=== PATIENT | male | born 1990 | race Caucasian/White ===

== ENCOUNTER → 2020-02-23 | Outpatient (CLI) | payer OTHER ==
[~2020-02-23] VITALS: Ht 167.6 cm; Wt 106.5 kg
[~2020-02-23] MED LIST: CLINDAMYCIN 900 MG/D5% WATER 50 ML IV SCH; MULT-1367 PO
[2020-02-23 10:54] LABS: BASOPHILS % (AUTO) 0.3 % (0.0-5.0); EOSINOPHILS % (AUTO) 2.2 % (0.0-8.0); HEMATOCRIT 46.8 % (42-54); LYMPHOCYTES % (AUTO) 22.3 % (21.0-51.0); MEAN CORPUSCULAR HEMOGLOBIN 27.1 pg (27.0-33.0); MEAN CORPUSCULAR HGB CONC 33.5 g/dL (32.0-36.0); MEAN CORPUSCULAR VOLUME 80.8 fL (79-99); MONOCYTES % (AUTO) 6.6 % (3.0-13.0); NEUTROPHILS % (AUTO) 68.4 % (40.0-77.0); PLATELET COUNT (AUTO) 259 K/uL (130-400); RED BLOOD CELL COUNT(AUTO) 5.79 MIL/uL (4.50-6.20); RED CELL DISTRIBUTION WIDTH 12.7 % (11.0-15.5)
[2020-02-23 11:02] LABS: CREATININE 1.1 mg/dL (0.5-1.5); POTASSIUM 3.7 mmol/L (3.5-5.1)
[2020-02-27 12:21] VITALS: BP 134/78
== END | disposition home or self-care (01) ==
LOC: DAH 10:00 → EDSTATUS 03-01 08:50
PROVIDERS: ATTEND Orthopaedic Surgery
DX: Z01.818 Encounter for other preprocedural examination (principal); S83.242A Other tear of medial meniscus, current injury, left knee, initial encounter; S83.512A Sprain of anterior cruciate ligament of left knee, initial encounter; X58.XXXA Exposure to other specified factors, initial encounter; Z20.828 Contact with and (suspected) exposure to other viral communicable diseases; Y93.89 Activity, other specified; Y92.89 Other specified places as the place of occurrence of the external cause; Y99.8 Other external cause status
CPT/HCPCS: 36415; 80048; 85025; U0003; J3490

== ENCOUNTER 2020-06-09 06:04 | Day surgery (SDC) | payer OTHER ==
[2020-06-04 12:24] LABS: BASOPHILS % (AUTO) 0.6 % (0.0-5.0); EOSINOPHILS % (AUTO) 2.2 % (0.0-8.0); HEMATOCRIT 49.4 % (42-54); MEAN CORPUSCULAR HEMOGLOBIN 26.8 pg (27.0-33.0); MEAN CORPUSCULAR HGB CONC 32.2 g/dL (32.0-36.0); MEAN CORPUSCULAR VOLUME 83.3 fL (79-99); MONOCYTES % (AUTO) 8.8 % (3.0-13.0); NEUTROPHILS % (AUTO) 65.1 % (40.0-77.0); PLATELET COUNT (AUTO) 278 K/uL (130-400); RED BLOOD CELL COUNT(AUTO) 5.93 MIL/uL (4.50-6.20); RED CELL DISTRIBUTION WIDTH 12.7 % (11.0-15.5); WHITE BLOOD COUNT (AUTO) 7.9 K/uL (4.8-10.8)
[2020-06-04 12:42] LABS: CREATININE 1.1 mg/dL (0.5-1.5); POTASSIUM 4.4 mmol/L (3.5-5.1)
[2020-06-07 16:27] VITALS: BP 133/79
[~2020-06-09] VITALS: Ht 167.6 cm; Wt 106.4 kg
[2020-06-09] VITALS (18 sets, daily range): BP systolic 121–140; BP diastolic 68–82
[2020-06-09] MEDS: CLINDAMYCIN 900 MG/D5% WATER 50 ML IV SCH ×2 (06:00→08:22)
[2020-06-09] MEDS ORDERED: LACTATED RINGERS 1000ML 1,000 ML IV ONE (06:21)
[2020-06-09] MEDS ORDERED: PROPOFOL 10 MG/ML 20ML VIAL IV ONE (07:34)
[2020-06-09] MEDS ORDERED: LIDOCAINE PF 2% 5ML ABBOJECT ONE (07:34)
[2020-06-09] MEDS ORDERED: SUCCINYLCHOLINE CHLORIDE 20 MG/ML 10 ML VIAL ONE (07:34)
[2020-06-09] MEDS ORDERED: MIDAZOLAM HCL 1 MG/ML 2ML VIAL ONE (07:34)
[2020-06-09] MEDS ORDERED: ROCURONIUM 10MG/1ML SYR 10 MG/ML ML ONE (07:34)
[2020-06-09] MEDS ORDERED: FENTANYL CITRATE PF 50 MCG/1 ML 2ML VIAL ONE (07:35)
[2020-06-09] MEDS ORDERED: GLYCOPYRROLATE 1 MG/5 ML SYRINGE ONE (07:38)
[2020-06-09] MEDS ORDERED: DEXAMETHASONE SOD PHOSPHATE 4 MG/ML 1ML VIAL ONE (07:38)
[2020-06-09] MEDS ORDERED: ONDANSETRON HCL 4 MG/2 ML VIAL ONE (07:39)
[2020-06-09] MEDS ORDERED: NEOSTIGMINE 5MG/5ML SYR IV ONE (07:39)
[2020-06-09] MEDS ORDERED: ROPIVACAINE 0.5% 5MG/ML 30ML IJ ONE (07:43)
[2020-06-09] MEDS ORDERED: CLINDAMYCIN PHOSPHATE 150 MG/ML 6ML VIAL ONE (07:46)
[2020-06-09] MEDS ORDERED: MEPERIDINE-PF 25 MG/ML SYG ONE ×2 (10:29→10:39)
[2020-06-09] MEDS ORDERED: HYDR-4060 PO ×2 (10:35→15:45)
[2020-06-09] MEDS ORDERED: CLIN300C10 PO (10:35)
[2020-06-09] MEDS ORDERED: IBUP-2070 PO (10:35)
== END 2020-06-09 12:15 | disposition home or self-care (01) ==
LOC: DAH 06:04
PROVIDERS: ATTEND Orthopaedic Surgery
DX: S83.512A Sprain of anterior cruciate ligament of left knee, initial encounter (principal); Z20.822 Contact with and (suspected) exposure to COVID-19; M95.8 Other specified acquired deformities of musculoskeletal system; G89.29 Other chronic pain; M25.562 Pain in left knee; E66.9 Obesity, unspecified; K21.9 Gastro-esophageal reflux disease without esophagitis; I10 Essential (primary) hypertension; F17.210 Nicotine dependence, cigarettes, uncomplicated; Z88.0 Allergy status to penicillin; Z72.89 Other problems related to lifestyle; Z90.49 Acquired absence of other specified parts of digestive tract; Z98.890 Other specified postprocedural states; Z82.49 Family history of ischemic heart disease and other diseases of the circulatory system; Z79.899 Other long term (current) drug therapy
CPT/HCPCS: 29888; 36415; 64445; 64447; 76942; 80048; 85025; A4215; A4221; A4222; A4223; A4649 ×5; A4663; A4930; A6223; C1713 ×2; C1762; C1776; C9803; J0330; J1100; J2001; J2175 ×2; J2250; J2405; J2704; J2710; J2795; J3010; J3490 ×2; J7120 ×2; U0003